=== PATIENT | female | born 1940 | race Caucasian/White ===

== ENCOUNTER 2024-05-17 15:01 | Emergency (ER) | payer MEDICARE ==
[~2024-05-17] VITALS: Ht 152.4 cm; Wt 58.9 kg
[2024-05-17] VITALS (20 sets, daily range): BP systolic 135–180; BP diastolic 61–101
[~2024-05-17 15:01] MED LIST: MACROBID100 M1 PO
[2024-05-17] MEDS ORDERED: LORazepam 2 MG/ML IV ONE (15:15)
[2024-05-17] MEDS ORDERED: LISINOPRIL20 M1 PO (15:24)
[2024-05-17] MEDS ORDERED: ATORVASTATIN CA10 MG PO (15:24)
[2024-05-17] MEDS ORDERED: B121000 MC1 PO (15:25)
[2024-05-17] MEDS ORDERED: LEXAPRO10 MG PO (15:28)
[2024-05-17] MEDS ORDERED: VITAMIN D-32000 UNI1 PO (15:28)
[2024-05-17] MEDS ORDERED: MORPHINE SULFATE 4 MG/ML VIAL IV ONE ×2 (15:30→19:45)
[2024-05-17] MEDS ORDERED: [UNRECOGNIZED DRUG - OTHER] (15:30)
[2024-05-17] MEDS ORDERED: ONDANSETRON HCl 4 MG/2 ML SDV IV ONE (15:30)
[2024-05-17 15:51] LABS: BASO% 0.3 % (0-3); EOS% 1.1 % (0-8); HEMATOCRIT 36.7 % (37.0-47.0); HEMOGLOBIN 11.9 g/dl (12.0-16.0); IMMATURE GRANULOCYTES 0.2 % (0.0-5.0); LYMPH% 26.6 % (15-41); MEAN CELL VOLUME 97.6 fL CALC (80.0-100.0); MEAN CORPUSCULAR HGB 31.6 pG CALC (26.0-32.0); MEAN CORPUSCULAR HGB CONC 32.4 g/dL CAL (32.0-36.0); MONO% 7.8 % (2-13); NEUT# 6.5 thou/uL (2.00-7.15); RED BLOOD COUNT 3.76 mill/uL (4.20-5.60); RED CELL DISTRI WIDTH 12.9 % (11.5-15.5)
[2024-05-17 16:07] LABS: ALBUMIN 4.3 g/dL (3.2-5.0); BILIRUBIN, TOTAL 0.4 mg/dL (0.02-1.3); CREATININE 0.9 mg/dL (0.5-1.0); POTASSIUM 3.9 mmol/l (3.5-5.1); TOTAL PROTEIN 6.8 g/dL (6.3-8.2)
[2024-05-17 17:54] LABS: URINE BILIRUBIN - DIPSTICK Negative (NEGATIVE); URINE BLOOD DIPSTICK Trace-intact (NEGATIVE); URINE COLOR Yellow; URINE GLUCOSE - DIPSTICK Negative (NEGATIVE); URINE KETONE 15 mg/dL (NEGATIVE); URINE LEUK ESTERASE Negative (NEGATIVE); URINE NITRITE - DIPSTICK Negative (Negative); URINE PH 5.5 (4.5-8.0); URINE PROTEIN - DIPSTICK Negative (NEG-TRACE); URINE SPECIFIC GRAVITY 1.015; URINE UROBILINOGEN - DIPSTICK 0.2 E.U./dL (0.2)
== END 2024-05-17 20:02 | disposition short-term general hospital (02) ==
LOC: ED 15:01
PROVIDERS: Nurse Practitioner
PROC: 0T9B70Z Drainage of Bladder with Drainage Device, Via Natural or Artificial Opening (ICD-10-PCS; principal; 2024-05-17)
DX: F03.90 Unspecified dementia, unspecified severity, without behavioral disturbance, psychotic disturbance, mood disturbance, and anxiety (principal); S72.012A Unspecified intracapsular fracture of left femur, initial encounter for closed fracture; W19.XXXA Unspecified fall, initial encounter; Y92.098 Other place in other non-institutional residence as the place of occurrence of the external cause
CPT/HCPCS: J2060

== ENCOUNTER 2024-07-11 07:55 | Emergency (ER) | payer MEDICARE ==
[~2024-07-11] VITALS: Ht 152.4 cm; Wt 45.5 kg
[~2024-07-11 07:55] MED LIST changes: +ACETAMINOPHEN325 MG PO; +ASPIRIN325 MG PO; +ATORVASTATIN CA10 MG PO; +B121000 MC1 PO; +FERROUS SULFAT325 MG PO; +LEXAPRO10 MG PO; +LISINOPRIL20 M1 PO; +SENNA/DSS1 TAB PO; +VITAMIN D-32000 UNI1 PO; +[UNRECOGNIZED DRUG - OTHER]
[2024-07-11] MEDS ORDERED: Diph, Acellular Pertussis, Tet 0.5 ML/VIAL (Tdap) SDV IM ONE (08:00)
[2024-07-11 08:02] VITALS: BP 94/61
[2024-07-11 08:15] VITALS: BP 114/51
[2024-07-11 08:17] LABS: BASO% 0.3 % (0-3); HEMATOCRIT 31.9 % (37.0-47.0); HEMOGLOBIN 10.1 g/dl (12.0-16.0); IMMATURE GRANULOCYTES 0.3 % (0.0-5.0); LYMPH% 15.1 % (15-41); MEAN CELL VOLUME 100.6 fL CALC (80.0-100.0); MEAN CORPUSCULAR HGB 31.9 pG CALC (26.0-32.0); MEAN CORPUSCULAR HGB CONC 31.7 g/dL CAL (32.0-36.0); MONO% 6.8 % (2-13); NEUT# 8.98 thou/uL (2.00-7.15); NEUT% 76.5 % (42-76); RED BLOOD COUNT 3.17 mill/uL (4.20-5.60); RED CELL DISTRI WIDTH 13.9 % (11.5-15.5)
[2024-07-11 08:32] LABS: ALKALINE PHOSPHATASE 100 u/l (38-126); ANION GAP 14 (6-22 (CALC)); BILIRUBIN, TOTAL 0.5 mg/dL (0.02-1.3); BUN 22 mg/dL (8-23); BUN/CREATININE RATIO 30 (12-20 (CALC)); CARBON DIOXIDE 25 mmol/l (22-30); CHLORIDE 103 mmol/l (95-108); CREATININE 0.7 mg/dL (0.5-1.0); ESTIMATED GFR 87 ML/MIN (>=90 (CALC)); POTASSIUM 4.2 mmol/l (3.5-5.1); SGOT/AST 55 u/l (9-36); SODIUM 138 mmol/l (137-146); TOTAL PROTEIN 6.9 g/dL (6.3-8.2)
[2024-07-11 08:33] VITALS: BP 143/108
[2024-07-11 08:45] VITALS: BP 112/63
[2024-07-11 09:06] LABS: URINE BILIRUBIN - DIPSTICK Negative (NEGATIVE); URINE BLOOD DIPSTICK Negative (NEGATIVE); URINE GLUCOSE - DIPSTICK Negative (NEGATIVE); URINE KETONE 15 mg/dL (NEGATIVE); URINE LEUK ESTERASE Negative (NEGATIVE); URINE NITRITE - DIPSTICK Negative (Negative); URINE PH 5.5 (4.5-8.0); URINE PROTEIN - DIPSTICK Negative (NEG-TRACE); URINE SPECIFIC GRAVITY 1.015; URINE UROBILINOGEN - DIPSTICK 0.2 E.U./dL (0.2)
[2024-07-11 09:09] LABS: URINE COLOR Yellow
[2024-07-11 09:31] VITALS: BP 106/64
[2024-07-11 10:31] VITALS: BP 106/56
== END 2024-07-11 10:46 | disposition home or self-care (01) ==
LOC: ED 07:55
PROVIDERS: Family Medicine
DX: S00.83XA Contusion of other part of head, initial encounter (principal); F03.90 Unspecified dementia, unspecified severity, without behavioral disturbance, psychotic disturbance, mood disturbance, and anxiety; I10 Essential (primary) hypertension; E78.5 Hyperlipidemia, unspecified; W05.0XXA Fall from non-moving wheelchair, initial encounter; Y92.129 Unspecified place in nursing home as the place of occurrence of the external cause

== ENCOUNTER 2024-07-24 14:18 | Emergency (ER) | payer MEDICARE ==
[2024-07-24] VITALS (19 sets, daily range): BP systolic 116–174; BP diastolic 56–141
[~2024-07-24] VITALS: Ht 152.4 cm; Wt 52.2 kg
[2024-07-24] MEDS ORDERED: ONDANSETRON HCl 4 MG/2 ML SDV IV ONE (14:25)
[2024-07-24] MEDS ORDERED: MORPHINE SULFATE 4 MG/ML VIAL IV ONE (14:25)
[2024-07-24 14:42] LABS: BASO% 0.4 % (0-3); HEMATOCRIT 31.3 % (37.0-47.0); HEMOGLOBIN 9.8 g/dl (12.0-16.0); LYMPH% 29.8 % (15-41); MEAN CORPUSCULAR HGB 31.6 pG CALC (26.0-32.0); MEAN CORPUSCULAR HGB CONC 31.3 g/dL CAL (32.0-36.0); NEUT# 6.18 thou/uL (2.00-7.15); NEUT% 58.8 % (42-76); RED BLOOD COUNT 3.1 mill/uL (4.20-5.60); RED CELL DISTRI WIDTH 13.7 % (11.5-15.5)
[2024-07-24 14:56] LABS: ALBUMIN 3.5 g/dL (3.2-5.0); ALKALINE PHOSPHATASE 122 u/l (38-126); ANION GAP 11 (6-22 (CALC)); BILIRUBIN, TOTAL 0.3 mg/dL (0.02-1.3); BUN 24 mg/dL (8-23); BUN/CREATININE RATIO 30 (12-20 (CALC)); CARBON DIOXIDE 29 mmol/l (22-30); CHLORIDE 103 mmol/l (95-108); CREATININE 0.8 mg/dL (0.5-1.0); ESTIMATED GFR 74 ML/MIN (>=90 (CALC)); POTASSIUM 4.4 mmol/l (3.5-5.1); SGOT/AST 27 u/l (9-36); SODIUM 138 mmol/l (137-146); TOTAL PROTEIN 6.3 g/dL (6.3-8.2)
[2024-07-24 15:09] LABS: URINE BILIRUBIN - DIPSTICK Negative (NEGATIVE); URINE BLOOD DIPSTICK Moderate (NEGATIVE); URINE GLUCOSE - DIPSTICK Negative (NEGATIVE); URINE KETONE Trace mg/dL (NEGATIVE); URINE PROTEIN - DIPSTICK 100 mg/dL (NEG-TRACE); URINE SPECIFIC GRAVITY 1.025
[2024-07-24 15:10] LABS: URINE COLOR Yellow; URINE LEUK ESTERASE Large (NEGATIVE); URINE NITRITE - DIPSTICK Positive (Negative)
[2024-07-24 15:18] LABS: URINE BACTERIA MODERATE hpf; URINE WBC >100 WBC/hpf (0-5)
[2024-07-24] MEDS ORDERED: cefTRIAXone SODIUM 2 GM in SODIUM CHLORIDE 0.9% 100 ML IV ONE (15:25)
== END 2024-07-24 19:28 | disposition short-term general hospital (02) ==
LOC: ED 14:18
PROVIDERS: Family Medicine
DX: S72.141A Displaced intertrochanteric fracture of right femur, initial encounter for closed fracture (principal); N39.0 Urinary tract infection, site not specified; B96.89 Other specified bacterial agents as the cause of diseases classified elsewhere; S00.83XA Contusion of other part of head, initial encounter; I10 Essential (primary) hypertension; E78.5 Hyperlipidemia, unspecified; F03.90 Unspecified dementia, unspecified severity, without behavioral disturbance, psychotic disturbance, mood disturbance, and anxiety; W18.30XA Fall on same level, unspecified, initial encounter; Y92.099 Unspecified place in other non-institutional residence as the place of occurrence of the external cause
CPT/HCPCS: J0696; J2405

== ENCOUNTER 2024-08-14 07:28 | Emergency (ER) | payer MEDICARE ==
[~2024-08-14] VITALS: Ht 152.4 cm; Wt 43.0 kg
[2024-08-14 08:30] LABS: URINE BILIRUBIN - DIPSTICK Negative (NEGATIVE); URINE BLOOD DIPSTICK Negative (NEGATIVE); URINE GLUCOSE - DIPSTICK Negative (NEGATIVE); URINE KETONE Negative (NEGATIVE); URINE LEUK ESTERASE Negative (NEGATIVE); URINE NITRITE - DIPSTICK Negative (Negative); URINE PROTEIN - DIPSTICK Negative (NEG-TRACE); URINE SPECIFIC GRAVITY 1.015; URINE UROBILINOGEN - DIPSTICK 0.2 E.U./dL (0.2)
[2024-08-14 08:33] LABS: URINE COLOR Yellow
[2024-08-14 08:36] LABS: BASO% 0.3 % (0-3); EOS% 1.5 % (0-8); HEMATOCRIT 25.6 % (37.0-47.0); IMMATURE GRANULOCYTES 0.1 % (0.0-5.0); LYMPH% 29.1 % (15-41); MEAN CELL VOLUME 97.7 fL CALC (80.0-100.0); MEAN CORPUSCULAR HGB 29.8 pG CALC (26.0-32.0); MEAN CORPUSCULAR HGB CONC 30.5 g/dL CAL (32.0-36.0); MONO% 7.9 % (2-13); NEUT# 4.4 thou/uL (2.00-7.15); NEUT% 61.1 % (42-76); RED BLOOD COUNT 2.62 mill/uL (4.20-5.60); RED CELL DISTRI WIDTH 13.8 % (11.5-15.5)
[2024-08-14 08:37] LABS: HEMOGLOBIN 7.8 g/dl (12.0-16.0)
[2024-08-14 08:40] LABS: ALBUMIN 3.1 g/dL (3.2-5.0); ALKALINE PHOSPHATASE 86 u/l (38-126); ANION GAP 9 (6-22 (CALC)); BILIRUBIN, TOTAL 0.4 mg/dL (0.02-1.3); BUN 18 mg/dL (8-23); BUN/CREATININE RATIO 27 (12-20 (CALC)); CARBON DIOXIDE 27 mmol/l (22-30); CHLORIDE 106 mmol/l (95-108); CREATININE 0.7 mg/dL (0.5-1.0); ESTIMATED GFR 87 ML/MIN (>=90 (CALC)); POTASSIUM 3.8 mmol/l (3.5-5.1); SGOT/AST 33 u/l (9-36); SODIUM 138 mmol/l (137-146); TOTAL PROTEIN 5.9 g/dL (6.3-8.2)
[2024-08-14 11:25] VITALS: BP 122/84
== END 2024-08-14 12:00 ==
LOC: ED 07:28 → ED-I 09:40 → ED 12:00
PROVIDERS: Emergency Medicine
DX: R53.1 Weakness (principal); K56.41 Fecal impaction; I10 Essential (primary) hypertension; E78.5 Hyperlipidemia, unspecified; F03.90 Unspecified dementia, unspecified severity, without behavioral disturbance, psychotic disturbance, mood disturbance, and anxiety; F32.A Depression, unspecified; F41.9 Anxiety disorder, unspecified